=== PATIENT | female | born 1945 | race Two or more races ===

== ENCOUNTER 2021-12-20 07:47 | Outpatient (REF) | payer OTHER, SELFPAY ==
[2021-12-20 08:33] LABS: Appearance Urine HAZY; Color Urine YELLOW; Glucose Urine UA NEG (NEG); Leukocyte Esterase Urine NEG (NEG); Nitrite Urine NEG (NEG); Specific Gravity - Urine 1.025 (1.005-1.025); Urine Blood NEG (NEG); Urine Ketones NEG (NEG); Urine Protein NEG (NEG-TRACE)
[2021-12-20 08:45] LABS: Hematocrit 41.1 % (37.0-47.0); Hemoglobin 12.8 g/dl (12.0-16.0); Mean Corpuscular HGB Conc 31.1 g/dl (31.0-35.0); Mean Corpuscular Hemoglobin 31.8 pg (27.0-33.0); Mean Platelet Volume 11.2 fL (9.4-12.3); Platelet Count 248 X10*3/uL (160-400); Red Blood Count 4.03 X10*6/uL (4.20-5.50); Red Cell Distribution Width 13.2 % (11.0-16.0); White Blood Count 6.5 X10*3/uL (4.8-10.8)
[2021-12-20 08:53] LABS: Estimated Average Glucose 120 mg/dL; Hemoglobin A1c % 5.8 %
[2021-12-20 09:04] LABS: Alanine Aminotransferase 13 U/L (0-31); Albumin Level 4.3 g/dL (3.5-5.0); Alkaline Phosphatase 86 U/L (39-117); Anion Gap 11 (12-20); Aspartate Amino Transferase 16 U/L (5-31); Bilirubin Direct < 0.2 mg/dL (0.0-0.5); Bilirubin Total 0.4 mg/dL (0.0-1.0); Blood Urea Nitrogen 13 mg/dL (9-16); Carbon Dioxide 28 mmol/L (22-29); Chloride 106 mmol/L (96-108); Cholesterol 330 mg/dL; Estimated Glomerular Filt Rate 56; Glucose Random 98 mg/dL (60-115); HDL Cholesterol 61 mg/dL; LDL Cholesterol Calculated 248 mg/dl; Potassium 4.7 mmol/L (3.3-5.1); Sodium 140 mmol/L (135-145); Total Protein 7.2 g/dL (6.5-8.0); Triglycerides 109 mg/dL
[2021-12-20 09:26] LABS: Thyroid Stimulating Hormone 16.56 uIU/mL (0.32-4.0)
== END 2021-12-20 07:48 | disposition home or self-care (01) ==
LOC: HO.LAB 07:47
PROVIDERS: PCP Internal Medicine; Visit Provider Internal Medicine
DX: I10 Essential (primary) hypertension (principal)
CPT/HCPCS: 36415; 80048; 80061; 80076; 81003; 83036; 84443; 85027

== ENCOUNTER 2022-04-07 09:37 | Outpatient (REF) | payer OTHER, SELFPAY ==
[2022-04-07 11:02] LABS: Thyroid Stimulating Hormone 8.98 uIU/mL (0.32-4.0)
== END 2022-04-07 09:38 | disposition home or self-care (01) ==
LOC: HO.LAB 09:37
PROVIDERS: PCP Internal Medicine; Visit Provider Internal Medicine
DX: E03.9 Hypothyroidism, unspecified (principal)
CPT/HCPCS: 36415; 84443

== ENCOUNTER 2022-07-21 12:44 | Outpatient (REF) | payer OTHER, SELFPAY ==
[2022-07-21 13:06] LABS: Hematocrit 43.8 % (37.0-47.0); Hemoglobin 13.8 g/dl (12.0-16.0); Mean Corpuscular HGB Conc 31.5 g/dl (31.0-35.0); Mean Corpuscular Volume 95.2 fL (80.0-98.0); Mean Platelet Volume 10.7 fL (9.4-12.3); Platelet Count 325 X10*3/uL (160-400); Red Cell Distribution Width 12.4 % (11.0-16.0); White Blood Count 7.9 X10*3/uL (4.8-10.8)
[2022-07-21 13:40] LABS: Alanine Aminotransferase 18 U/L (0-31); Albumin Level 4.2 g/dL (3.5-5.0); Alkaline Phosphatase 83 U/L (39-117); Anion Gap 16 (12-20); Aspartate Amino Transferase 21 U/L (5-31); Bilirubin Direct < 0.2 mg/dL (0.0-0.5); Bilirubin Total 0.5 mg/dL (0.0-1.0); Blood Urea Nitrogen 15 mg/dL (9-16); Calcium 10.6 mg/dL (8.4-10.2); Carbon Dioxide 27 mmol/L (22-29); Chloride 103 mmol/L (96-108); Cholesterol 291 mg/dL; Estimated Glomerular Filt Rate 59; Glucose Random 110 mg/dL (60-115); HDL Cholesterol 52 mg/dL; LDL Cholesterol Calculated 211 mg/dl; Potassium 4.3 mmol/L (3.3-5.1); Sodium 142 mmol/L (135-145); Total Protein 7.1 g/dL (6.5-8.0); Triglycerides 141 mg/dL
[2022-07-21 13:55] LABS: Thyroid Stimulating Hormone 5.14 uIU/mL (0.32-4.0)
[2022-07-21 13:58] LABS: Appearance Urine Clear; Color Urine Yellow; Glucose Urine UA Negative (Negative); Leukocyte Esterase Urine Negative (Negative); Nitrite Urine Negative (Negative); Urine Blood Negative (Negative); Urine Ketones Negative (Negative); Urine Protein Trace mg/dL (Neg-Trace)
== END 2022-07-21 12:45 | disposition home or self-care (01) ==
LOC: HO.LAB 12:44
PROVIDERS: PCP Internal Medicine; Visit Provider Internal Medicine
DX: E03.9 Hypothyroidism, unspecified (principal); I10 Essential (primary) hypertension
CPT/HCPCS: 36415; 80048; 80061; 80076; 81003; 84443; 85027

== ENCOUNTER 2022-12-24 09:30 | Outpatient (AMB) | payer OTHER, SELFPAY ==
--- NOTE | 2022-12-24 09:48 | A.OFFPC_ITS ---
Vital Signs 12/24/22 09:49 Height 5 ft 6 in Weight 181 lb BMI 29.2 BP 128/80 Blood Pressure Location Lt brachial Position Sitting Pulse 113 H Pulse Source Pulse Oximeter Pulse Oximetry (%) 98 Oxygen Delivery Method Room Air Intake Visit Reasons: PE Intake Note: Patient is here today for a physical. Machine Chain Maker Required: Yes Machine Chain Maker Language: Phlebotomy Lab Assistant Name: Liu ([id number]) Information Interpreted: non-clinical & clinical Preschool Special Education Teacher: Not Required per policy Accompanied by: Self / Same As Patient Allergies No Known Allergies [No Known Allergies*] Allergy (Verified 12/24/22 11:52) Tobacco use date assessed: 12/24/22 Fall risk assessment: No Falls in past year Last assessed Fall Risk: 12/24/22 Dental Screening Dental Screen Date: 12/24/22 Did you have a dental visit in the last 12 months?: No Did you have a dental problem in the last 6 months where you did not have access to dental care?: No Was dental information given to patient?: No (no teeth) HPI PE HPI Details 77-year-old female presents to the office requesting an annual physical. Patient speaks Kazakh only and life sciences instructor was used. [facility] Medical History Benign essential HTN Hypothyroid Surgical History History of section Family History Father Parkinson disease Mother No problems noted. Social History Housing: House Alcohol intake: never Patient Tobacco Use Status: Never used Tobacco Tobacco use type: Cigarette e-Cigarette/Vaping Use: Never Used Second Hand Smoke Exposure: No service: No Current occupational status: retired Cognitive needs: Yes (cane ) Hearing needs: No Vision needs: Yes (glasses) Questionnaire PHQ-9 Over the last 2 weeks, how often have you been bothered by any of the following problems? Depression Screening Interpretation: Negative Source: Developed by Drs. Edgardo Terrell, Caryn Banerjee, Rohith Bui and colleagues, with an educational cherelle from [employer]. Thrive Questionnaire Date Thrive assessed: 12/17/21 AUNDREA-7 AMB Questionnaire AUNDREA-7 Date AUNDREA - 7 assessed: 07/21/22 Source: Developed by Drs. Edgardo Terrell, Caryn Banerjee, Rohith Bui and colleagues, with an educational cherelle from [employer]. Physical exam (Primary Care) Vital Signs: Last Vital Signs Pulse 113 H 12/24/22 09:49 BP 128/80 12/24/22 09:49 Pulse Ox 98 12/24/22 09:49 Oxygen Delivery Method Room Air 12/24/22 09:49 Care Plan Goal for BP management: Blood pressure is in range. Continue medications at same dosage. BMI result Body Mass Index 29.2 Tobacco/Smoking Status: Tobacco use Status Tobacco use date assessed 12/24/22 12/24/22 09:58 Patient Tobacco Use Status Never used Tobacco 12/24/22 09:58 Tobacco use type Cigarette 12/24/22 09:58 e-Cigarette/Vaping Use Never Used 12/24/22 09:58 Depression Screening Interpretation: Negative Thrive Assessment: Date of Thrive Assessment Date Thrive assessed 12/17/21 12/24/22 09:58 Advance Care Planning discussion: Exists, not on file Date of discussion: 12/24/22 Who was present: Patient. Using an life sciences instructor the healthcare proxy form was explained. Forms completed: Health Care Proxy Time spent: 1-15 minutes, not on file Actual minutes spent: 5 Const General: cooperative, healthy appearing and comfortable HENMT Head: Yes normal to inspection and Yes atraumatic Eyes General: appearance normal, both eyes and all related structures Neck Neck: Yes normal visual inspection and Yes full ROM Chest Chest palpation & inspection: normal inspection of the chest Resp Effort & Inspection: normal respiratory effort Auscultation: clear to auscultation bilaterally Cardio Jugular venous distension: no JVD Palpation: normal PMI Rate: regular rate Heart sounds: S1 normal heart sound present and S2 normal heart sound present GI Palpation (GI): Soft to palpation and No hepatosplenomegaly present Extrem General: Yes normal to inspection and Yes full ROM Assessment and Plan Assessment & Plan (1) Hypothyroid: Code(s): E03.9 - Hypothyroidism, unspecified Plan: Continue Synthroid at same dosage. Prescription called in. Patient was requesting a cane and a prescription for the same has been sent. (2) Benign essential HTN: Code(s): I10 - Essential (primary) hypertension Plan: Blood pressure is in range. Medications to be continued at the same dosage. (3) Annual physical exam: Code(s): Z00.00 - Encounter for general adult medical examination without abnormal findings Medications: Refilled of-bfr-xxrad-calcium carb-K1 400 mcg-500 mg calcium-20 mcg (Women's 50 Plus Multivitamin) Take 1 tablet by mouth daily 1 tab PO DAILY 90 tabs 1RF enalapril-hydrochlorothiazide 10-25 mg 1 tab PO DAILY 90 tabs 1RF levothyroxine 50 mcg PO DAILY 90 tabs 1RF simvastatin 10 mg PO BEDTIME 90 tabs 1RF Coding Level of Care Code Est Pt Prev Care >65y(66276) Diagnoses Hypothyroid E03.9 Benign essential HTN I10 Annual physical exam Z00.00 Additional Codes Vital Signs *Quality* - Advance Care Planning discussion: Exists, not on file ([id number]) Vital Signs *Quality* - Time spent: 1-15 minutes, not on file ([id number])
[2022-12-24 09:49] VITALS: BP 128/80; PULSE 113; O2SAT 98; BMI 29.2
== END 2022-12-24 10:43 | disposition home or self-care (01) ==
PROVIDERS: PCP Internal Medicine; Visit Provider Internal Medicine
DX: E03.9 Hypothyroidism, unspecified (principal); I10 Essential (primary) hypertension; Z00.00 Encounter for general adult medical examination without abnormal findings
CPT/HCPCS: 1123F; 1124F; 99397

== ENCOUNTER 2023-03-26 09:53 | Outpatient (AMB) | payer OTHER, SELFPAY ==
--- NOTE | 2023-03-26 10:06 | A.OFFPC_ITS ---
Vital Signs 03/26/23 10:07 Height 5 ft 6 in Weight 183 lb BMI 29.5 BP 124/68 Blood Pressure Location Lt brachial Position Sitting Pulse 116 H Pulse Source Pulse Oximeter Pulse Oximetry (%) 96 Oxygen Delivery Method Room Air Intake Visit Reasons: 3mth f/u Intake Note: Patient is here to follow up on HTN, Hypothyriod. It Support Engineer Required: Yes It Support Engineer Language: Grades 7 8 Tutor Name: Jaky ([id number]) Repairer Welding Systems And Equipment: Not Required per policy Accompanied by: Self / Same As Patient Allergies No Known Allergies [No Known Allergies*] Allergy (Verified 04/05/23 12:25) Medication List - Last Reconciled 04/05/23 by Humble Wilson MD [bath mat As directed] cane As directed 3 prong enalapril-hydrochlorothiazide 10-25 mg 1 tab PO DAILY levothyroxine 50 mcg PO DAILY dy-uci-rvzjr-calcium carb-K1 400 mcg-500 mg calcium-20 mcg (Women's 50 Plus Multivitamin) 1 tab PO DAILY [quad cane As directed] simvastatin 10 mg PO BEDTIME Tobacco use date assessed: 03/26/23 Fall risk assessment: No Falls in past year Last assessed Fall Risk: 03/26/23 Dental Screening Dental Screen Date: 03/26/23 Did you have a dental visit in the last 12 months?: No Did you have a dental problem in the last 6 months where you did not have access to dental care?: No Was dental information given to patient?: No (dentures) HPI 3mth f/u HPI Details 78-year-old female presents to the offic e to discuss her chronic medical conditions. Patient is compliant with medications and reporting no side effects. Able to function and do all activities of daily living. [facility] Medical History Benign essential HTN Hypothyroid Surgical History History of section Family History Father Parkinson disease Mother No problems noted. Social History Housing: House Alcohol intake: never Patient Tobacco Use Status: Never used Tobacco Tobacco use type: Cigarette e-Cigarette/Vaping Use: Never Used Second Hand Smoke Exposure: No service: No Current occupational status: retired Cognitive needs: Yes (cane ) Hearing needs: No Vision needs: Yes (glasses) Questionnaire Thrive Questionnaire Date Thrive assessed: 12/17/21 AUNDREA-7 AMB Questionnaire AUNDREA-7 Date AUNDREA - 7 assessed: 07/21/22 Source: Developed by Drs. Edgardo Terrell, Caryn Banerjee, Rohith Bui and colleagues, with an educational cherelle from [employer]. Physical exam (Primary Care) Vital Signs: Last Vital Signs Pulse 116 H 03/26/23 10:07 BP 124/68 03/26/23 10:07 Pulse Ox 96 03/26/23 10:07 Oxygen Delivery Method Room Air 03/26/23 10:07 BMI result Body Mass Index 29.5 Tobacco/Smoking Status: Tobacco use Status Tobacco use date assessed 03/26/23 03/26/23 10:14 Patient Tobacco Use Status Never used Tobacco 03/26/23 10:14 Tobacco use type Cigarette 03/26/23 10:14 e-Cigarette/Vaping Use Never Used 03/26/23 10:14 Thrive Assessment: Date of Thrive Assessment Date Thrive assessed 12/17/21 03/26/23 10:14 Const General: cooperative and healthy appearing Nutritional Appearance: well nourished Orientation/consciousness: patient oriented x3 Limitations: no limitations HENMT Head: Yes normal to inspection Eyes General: appearance normal, both eyes and all related structures Neck Neck: Yes normal visual inspection Chest Chest palpation & inspection: normal palpation of entire chest wall Resp Effort & Inspection: normal respiratory effort Neuro General: patient oriented x3 Assessment and Plan Assessment & Plan (1) Hypothyroid: Code(s): E03.9 - Hypothyroidism, unspecified Plan: TSH is in range. Continue current medications (2) Benign essential HTN: Code(s): I10 - Essential (primary) hypertension Plan: Blood pressure is in range. Continue current medications Coding Level of Care Code Est Pt Level 4 (77263) Diagnoses Hypothyroid E03.9 Benign essential HTN I10
[2023-03-26 10:07] VITALS: BP 124/68; PULSE 116; O2SAT 96; BMI 29.5
== END 2023-03-26 10:57 | disposition home or self-care (01) ==
PROVIDERS: Visit Provider Internal Medicine
DX: E03.9 Hypothyroidism, unspecified (principal); I10 Essential (primary) hypertension
CPT/HCPCS: 99214

== ENCOUNTER 2023-06-25 08:36 | Outpatient (REF) | payer OTHER, SELFPAY ==
[2023-06-25 09:38] LABS: Hematocrit 41.7 % (37.0-47.0); Hemoglobin 13.1 g/dl (12.0-16.0); Mean Corpuscular HGB Conc 31.4 g/dl (31.0-35.0); Mean Corpuscular Hemoglobin 30.1 pg (27.0-33.0); Mean Corpuscular Volume 95.9 fL (80.0-98.0); Mean Platelet Volume 11.1 fL (9.4-12.3); Platelet Count 346 X10*3/uL (160-400); Red Blood Count 4.35 X10*6/uL (4.20-5.50); Red Cell Distribution Width 12.2 % (11.0-16.0); White Blood Count 6.2 X10*3/uL (4.8-10.8)
[2023-06-25 11:01] LABS: Alanine Aminotransferase 20 U/L (0-31); Albumin Level 4.2 g/dL (3.5-5.0); Alkaline Phosphatase 53 U/L (39-117); Anion Gap 13 (12-20); Aspartate Amino Transferase 15 U/L (5-31); Bilirubin Direct 0.2 mg/dL (0.0-0.5); Bilirubin Total 0.4 mg/dL (0.0-1.0); Blood Urea Nitrogen 14 mg/dL (9-16); Calcium 10.8 mg/dL (8.4-10.2); Carbon Dioxide 29 mmol/L (22-29); Chloride 102 mmol/L (96-108); Cholesterol 196 mg/dL (<200); Estimated Glomerular Filt Rate 45; Glucose Random 117 mg/dL (60-115); HDL Cholesterol 51 mg/dL (>40); LDL Cholesterol Calculated 114 mg/dL (<100); Potassium 3.7 mmol/L (3.3-5.1); Sodium 140 mmol/L (135-145); Total Protein 7.6 g/dL (6.5-8.0); Triglycerides 156 mg/dL (<150)
[2023-06-25 11:03] LABS: Appearance Urine Clear; Color Urine Yellow; Glucose Urine UA Negative (Negative); Leukocyte Esterase Urine Negative (Negative); Nitrite Urine Negative (Negative); Specific Gravity - Urine 1.015 (1.005-1.025); Urine Blood Negative (Negative); Urine Ketones Negative (Negative); Urine Protein Negative (Neg-Trace)
[2023-06-25 11:15] LABS: Thyroid Stimulating Hormone 6.07 uIU/mL (0.32-4.0)
== END 2023-06-25 08:37 | disposition home or self-care (01) ==
LOC: HO.LAB 08:36
PROVIDERS: PCP Internal Medicine; Visit Provider Internal Medicine
DX: I10 Essential (primary) hypertension (principal); E03.9 Hypothyroidism, unspecified
CPT/HCPCS: 36415; 80048; 80061; 80076; 81003; 84443; 85027

== ENCOUNTER 2023-06-25 09:21 | Outpatient (AMB) | payer OTHER, SELFPAY ==
--- NOTE | 2023-06-25 10:10 | A.OFFPC_ITS ---
Vital Signs 06/25/23 10:13 Height 5 ft 6 in Weight 185 lb 8 oz BMI 29.9 BP 120/74 Blood Pressure Location Lt brachial Position Sitting Pulse 117 H Pulse Source Pulse Oximeter Pulse Oximetry (%) 98 Oxygen Delivery Method Room Air Intake Visit Reasons: 3 month f/u Intake Note: Patient is here to follow up on HTN, Hypothyroid and Lab results. Manager Cafe Required: Yes Manager Cafe Language: Electrical Tester Battery Name: Julieta ([id number]) Information Interpreted: non-clinical & clinical Hose Suspender Cutter: Not Required per policy Accompanied by: Self / Same As Patient Allergies No Known Allergies [No Known Allergies*] Allergy (Verified 06/26/23 15:12) Medication List - Last Reconciled 06/26/23 by Humble Wilson MD [bath mat As directed] cane As directed 3 prong enalapril-hydrochlorothiazide 10-25 mg 1 tab PO DAILY levothyroxine 75 mcg PO DAILY uv-aqq-eulre-calcium carb-K1 400 mcg-500 mg calcium-20 mcg (Women's 50 Plus Multivitamin) 1 tab PO DAILY [quad cane As directed] simvastatin 10 mg PO BEDTIME Tobacco use date assessed: 06/25/23 Fall risk assessment: No Falls in past year Last assessed Fall Risk: 06/25/23 Dental Screening Dental Screen Date: 06/25/23 Did you have a dental visit in the last 12 months?: No Did you have a dental problem in the last 6 months where you did not have access to dental care?: No Was dental information given to patient?: No HPI 3 month f/u HPI Details 78-year-old female presents to the [facility] e to discuss her medical conditions. Marshallese-speaking, a medical technologist microbiology from the iPad was used. Patient had blood work done today and is awaiting her results. She is compliant with her medications. No other complaints. [facility] Medical History Benign essential HTN Hypothyroid Surgical History History of section Family History Father Parkinson disease Mother No problems noted. Social History (Reviewed 06/25/23 @ 10:10 by MUNIRA Rehman Housing: House Alcohol intake: never Patient Tobacco Use Status: Never used Tobacco Tobacco use type: Cigarette e-Cigarette/Vaping Use: Never Used Second Hand Smoke Exposure: No service: No Current occupational status: retired Cognitive needs: Yes (cane ) Hearing needs: No Vision needs: Yes (glasses) Questionnaire PHQ-9 Over the last 2 weeks, how often have you been bothered by any of the following problems? 1. Little interest or pleasure in doing things: not at all 2. Feeling down, depressed, or hopeless: not at all 3. Trouble falling or staying asleep, or sleeping too much: not at all 4. Feeling tired or having little energy: not at all 5. Poor appetite or overeating: not at all 6. Feeling bad about yourself - or that you are a failure or have let yourself or your family down: not at all 7. Trouble concentrating on things, such as reading the newspaper or watching television: not at all 8. Moving or speaking so slowly that other people could have noticed. Or the opposite - being so fidgety or restless that you have been moving around a lot more than usual: not at all 9. Thoughts that you would be better off or of hurting yourself in some way: not at all Total score: 0 Depression Screening Interpretation: Negative Depression Screening Done: Yes Source: Developed by Drs. Edgardo Terrell, Caryn Banerjee, Rohith Bui and colleagues, with an educational cherelle from [employer]. Thrive Questionnaire Date Thrive assessed: 06/25/23 I am a: Patient What is your living situation today?: I have a steady place to live Within the past 12 months, did the food you bought not last and you didn't have the money to get more?: Never true Within the past 12 months, did you worry whether your food would run out before you got money to buy more?: Never true Do you have trouble paying for medicines?: No Do you have trouble getting transportation to medical appointments?: No Do you have trouble paying your heating and electricity bill?: No Do you have trouble taking care of your child, family member or friend?: No Do you have trouble with day-to-day activities such as bathing, preparing meals, shopping, managing finances, etc.?: No Are you currently unemployed and looking for a job?: No Are you interested in more education?: No Currently or been in a relationship where the following occur: no concerns reported THRIVE Score: 0 AUDIT C Alcohol Use Questionnaire (AUDIT-C) 1. How often do you have a drink containing alcohol?: Never Total Score: 0 AUNDREA-7 AMB Questionnaire AUNDREA-7 Date AUNDREA - 7 assessed: 06/25/23 Feeling nervous, anxious, or on edge: 0 = Not at all Not being able to stop or control worryin = Not at all Worrying too much about different things: 0 = Not at all Trouble relaxin = Not at all Being so restless that it is hard to sit still: 0 = Not at all Becoming easily annoyed or irritable: 0 = Not at all Feeling afraid as if something awful might happen: 0 = Not at all Total AUNDREA-7 score (0-4 normal; 5-9 mild; 10-14 moderate; 15-21 severe): 0 Source: Developed by Drs. Edgardo Terrell, Caryn Banerjee, Rohith Bui and colleagues, with an educational cherelle from [employer]. Physical exam (Primary Care) Vital Signs: Last Vital Signs Pulse 117 H 06/25/23 10:13 BP 120/74 06/25/23 10:13 Pulse Ox 98 06/25/23 10:13 Oxygen Delivery Method Room Air 06/25/23 10:13 Care Plan Goal for BP management: Blood pressure is in range. BMI result Body Mass Index 29.9 Tobacco/Smoking Status: Tobacco use Status Tobacco use date assessed 06/25/23 06/25/23 10:22 Patient Tobacco Use Status Never used Tobacco 06/25/23 10:22 Tobacco use type Cigarette 06/25/23 10:22 e-Cigarette/Vaping Use Never Used 06/25/23 10:22 PHQ-9: PHQ-9 Score PHQ-9: Total score 0 06/25/23 10:22 Depression Screening Interpretation: Negative Thrive Assessment: Date of Thrive Assessment Date Thrive assessed 06/25/23 06/25/23 10:22 Currently or been in a relationship where the following occur: no concerns reported Const General: cooperative and healthy appearing Nutritional Appearance: well nourished Orientation/consciousness: patient oriented x3 Limitations: no limitations HENMT Head: Yes normal to inspection Eyes General: appearance normal, both eyes and all related structures Neck Neck: Yes normal visual inspection Chest Chest palpation & inspection: normal palpation of entire chest wall Resp Effort & Inspection: normal respiratory effort Neuro General: patient oriented x3 Assessment and Plan Assessment & Plan (1) Hypothyroid: Code(s): E03.9 - Hypothyroidism, unspecified Plan: This note was dictated after the TSH results were available. TSH continues to be elevated and the Synthroid dosage was increased. Patient was advised to repeat TSH in 8 weeks. Medications: Discontinued levothyroxine Discontinued Reason: Doctor's Order 50 mcg PO DAILY 90 tabs 1RF Coding Level of Care Code Est Pt Level 4 (19891) Diagnoses Hypothyroid E03.9
[2023-06-25 10:13] VITALS: BP 120/74; PULSE 117; O2SAT 98; BMI 29.9
== END 2023-06-25 11:02 | disposition home or self-care (01) ==
PROVIDERS: PCP Internal Medicine; Visit Provider Internal Medicine
DX: E03.9 Hypothyroidism, unspecified (principal)
CPT/HCPCS: 99214

== ENCOUNTER 2023-09-17 09:04 | Outpatient (AMB) | payer OTHER, SELFPAY ==
--- NOTE | 2023-09-17 09:06 | A.OFFPC_ITS ---
Vital Signs 09/17/23 09:08 Height 5 ft 6 in Weight 185 lb 8 oz BMI 29.9 BP 112/68 Blood Pressure Location Lt brachial Position Sitting Pulse 109 H Pulse Source Pulse Oximeter Pulse Oximetry (%) 98 Oxygen Delivery Method Room Air Intake Visit Reasons: 3 month f/u Intake Note: Patient is here to follow up on HTN, Hypothyroid. Investment Officer Required: Yes Investment Officer Language: Tamazight Information Interpreted: non-clinical & clinical Operations Associate: Not Required per policy Accompanied by: Self / Same As Patient Allergies No Known Allergies [No Known Allergies*] Allergy (Verified 09/17/23 09:07) Tobacco use date assessed: 09/17/23 Fall risk assessment: No Falls in past year Last assessed Fall Risk: 09/17/23 Dental Screening Dental Screen Date: 06/25/23 HPI 3 month f/u HPI Details 78-year-old female presents to [facility] to discuss her chronic medical conditions. History obtained through an correctional program specialist. Patient is in her baseline state of health. Compliant with medications and reporting no side effects. Able to function and do all activities of daily living. [facility] Medical History Hypothyroid Benign essential HTN Surgical History History of section Family History Father Parkinson disease Mother No problems noted. Social History Housing: House Alcohol intake: never Patient Tobacco Use Status: Never used Tobacco Tobacco use type: Cigarette e-Cigarette/Vaping Use: Never Used Second Hand Smoke Exposure: No service: No Current occupational status: retired Cognitive needs: Yes (cane ) Hearing needs: No Vision needs: Yes (glasses) Questionnaire Thrive Questionnaire Date Thrive assessed: 06/25/23 AUNDREA-7 AMB Questionnaire AUNDREA-7 Date AUNDREA - 7 assessed: 06/25/23 Source: Developed by Drs. Edgardo Terrell, Caryn Banerjee, Rohith Bui and colleagues, with an educational cherelle from [employer]. Physical exam (Primary Care) Vital Signs: Last Vital Signs Pulse 109 H 09/17/23 09:08 BP 112/68 09/17/23 09:08 Pulse Ox 98 09/17/23 09:08 Oxygen Delivery Method Room Air 09/17/23 09:08 BMI result Body Mass Index 29.9 Tobacco/Smoking Status: Tobacco use Status Tobacco use date assessed 09/17/23 09/17/23 09:26 Patient Tobacco Use Status Never used Tobacco 09/17/23 09:26 Tobacco use type Cigarette 09/17/23 09:26 e-Cigarette/Vaping Use Never Used 09/17/23 09:26 Thrive Assessment: Date of Thrive Assessment Date Thrive assessed 06/25/23 09/17/23 09:26 Const General: cooperative and healthy appearing Nutritional Appearance: well nourished Orientation/consciousness: patient oriented x3 Limitations: no limitations HENMT Head: Yes normal to inspection Eyes General: appearance normal, both eyes and all related structures Neck Neck: Yes normal visual inspection Chest Chest palpation & inspection: normal palpation of entire chest wall Resp Effort & Inspection: normal respiratory effort Neuro General: patient oriented x3 Assessment and Plan Assessment & Plan (1) Benign essential HTN: Code(s): I10 - Essential (primary) hypertension Plan: Blood pressure is in range. Continue medications at same dosage. Medications: Refilled levothyroxine 75 mcg PO DAILY 90 caps 0RF simvastatin 10 mg PO BEDTIME 90 tabs 1RF Coding Level of Care Code Est Pt Level 3 (99890) Diagnoses Benign essential HTN I10
[2023-09-17 09:08] VITALS: BP 112/68; PULSE 109; O2SAT 98; BMI 29.9
== END 2023-09-17 09:55 | disposition home or self-care (01) ==
PROVIDERS: PCP Internal Medicine; Visit Provider Internal Medicine
DX: I10 Essential (primary) hypertension (principal)
CPT/HCPCS: 99213

== ENCOUNTER 2023-12-31 10:07 | Outpatient (AMB) | payer OTHER, SELFPAY ==
[2023-12-31 10:08] VITALS: BP 122/68; PULSE 108; O2SAT 98
--- NOTE | 2023-12-31 10:08 | A.OFFPC_ITS ---
Vital Signs 12/31/23 10:08 Height 5 ft 6 in Weight 186 lb 0.4 oz BMI 30.0 BP 122/68 Blood Pressure Location Lt brachial Position Sitting Pulse 108 H Pulse Source Pulse Oximeter Pulse Oximetry (%) 98 Oxygen Delivery Method Room Air Intake Visit Reasons: 3mof\u Safety Director Required: No Allergies No Known Allergies [No Known Allergies*] Allergy (Verified 12/31/23 10:09) Tobacco use date assessed: 09/17/23 Fall risk assessment: No Falls in past year Last assessed Fall Risk: 12/31/23 Dental Screening Dental Screen Date: 06/25/23 HPI 3mof\u HPI0 Details 78-year-old female presents to the [facility] to discuss her medical conditions. Compliant with medications and reports no side effects. History obtained through environmental project manager. Requesting a refill on her blood pressure medications [facility] Medical History Hypothyroid Benign essential HTN Surgical History History of section Family History Father Parkinson disease Mother No problems noted. Social History Housing: House Alcohol intake: never Patient Tobacco Use Status: Never used Tobacco Tobacco use type: Cigarette e-Cigarette/Vaping Use: Never Used Second Hand Smoke Exposure: No service: No Current occupational status: retired Cognitive needs: Yes (cane ) Hearing needs: No Vision needs: Yes (glasses) Questionnaire Thrive Questionnaire Date Thrive assessed: 06/25/23 AUDIT C Alcohol Use Questionnaire (AUDIT-C) 1. How often do you have a drink containing alcohol?: Never 3. How often do you have six or more drinks on one occasion?: Never Total Score: 0 AUNDREA-7 AMB Questionnaire AUNDREA-7 Date AUNDREA - 7 assessed: 06/25/23 Source: Developed by Drs. Edgardo Terrell, Caryn Banerjee, Rohith Bui and colleagues, with an educational cherelle from [employer]. Physical exam (Primary Care) Vital Signs: Last Vital Signs Pulse 108 H 12/31/23 10:08 BP 122/68 12/31/23 10:08 Pulse Ox 98 12/31/23 10:08 Oxygen Delivery Method Room Air 12/31/23 10:08 Care Plan Goal for BP management: Blood pressure is in range. BMI result Body Mass Index 30.0 Tobacco/Smoking Status: Tobacco use Status Tobacco use date assessed 09/17/23 12/31/23 10:14 Patient Tobacco Use Status Never used Tobacco 12/31/23 10:14 Tobacco use type Cigarette 12/31/23 10:14 e-Cigarette/Vaping Use Never Used 12/31/23 10:14 Thrive Assessment: Date of Thrive Assessment Date Thrive assessed 06/25/23 12/31/23 10:14 Const General: cooperative and healthy appearing Nutritional Appearance: well nourished Orientation/consciousness: patient oriented x3 Limitations: no limitations HENMT Head: Yes normal to inspection Eyes General: appearance normal, both eyes and all related structures Neck Neck: Yes normal visual inspection Chest Chest palpation & inspection: normal palpation of entire chest wall Resp Effort & Inspection: normal respiratory effort Neuro General: patient oriented x3 Assessment and Plan Assessment & Plan (1) Hypothyroid: Code(s): E03.9 - Hypothyroidism, unspecified Plan: In the last blood draw, TSH was slightly abnormal. The dosage of Synthroid was not adjusted. Will Plan In the last blood work, TSH was abnormal. The Synthroid dosage was not adjusted. If the abnormality worsens Synthroid dosage will be increased. Orders: Orders Thyroid Stimulating Hormone Today E03.9 - Hypothyroidism, unspecified Medications: Refilled enalapril maleate 10 mg PO DAILY 90 tabs 1RF hydrochlorothiazide 25 mg PO DAILY 90 tabs 1RF Coding Level of Care Code Est Pt Level 4 (33324) Complex EM visit Add On G2211 Diagnoses Hypothyroid E03.9
== END 2023-12-31 10:34 | disposition home or self-care (01) ==
PROVIDERS: PCP Internal Medicine; Visit Provider Internal Medicine
DX: E03.9 Hypothyroidism, unspecified (principal)
CPT/HCPCS: 99214; G2211

== ENCOUNTER 2024-03-28 10:47 | Outpatient (REF) | payer OTHER, SELFPAY ==
[2024-03-28 12:34] LABS: Thyroid Stimulating Hormone 3.61 uIU/mL (0.32-4.0)
== END 2024-03-28 10:48 | disposition home or self-care (01) ==
LOC: HO.LAB 10:47
PROVIDERS: PCP Internal Medicine; Visit Provider Internal Medicine
DX: E03.9 Hypothyroidism, unspecified (principal)
CPT/HCPCS: 36415; 84443

== ENCOUNTER 2024-04-06 10:20 | Outpatient (AMB) | payer OTHER, SELFPAY ==
--- NOTE | 2024-04-06 10:33 | A.OFFPC_ITS ---
Vital Signs 04/06/24 10:34 Height 5 ft 6 in Weight 185 lb BMI 29.9 BP 110/66 Blood Pressure Location Lt brachial Position Sitting Pulse 119 H Pulse Source Pulse Oximeter Pulse Oximetry (%) 98 Oxygen Delivery Method Room Air Intake Visit Reasons: 3 month Intake Note: Patient is here to follow up on HTN, Hypothyroid. Case Making Machine Operator Required: Yes Case Making Machine Operator Language: Enterprise Applications Manager Name: Cleopatra ([id number]) Information Interpreted: non-clinical & clinical Health Policy Nurse: Not Required per policy Accompanied by: Self / Same As Patient Allergies No Known Allergies [No Known Allergies*] Allergy (Verified 04/06/24 13:30) Medication List - Last Reconciled 04/06/24 by Humble Wilson MD [bath mat As directed] cane As directed 3 prong enalapril maleate 10 mg PO DAILY hydrochlorothiazide 25 mg PO DAILY levothyroxine 75 mcg PO DAILY qv-vva-xcfid-calcium carb-K1 400 mcg-500 mg calcium-20 mcg (Women's 50 Plus Multivitamin) 1 tab PO DAILY [quad cane As directed] simvastatin 10 mg PO BEDTIME Tobacco use date assessed: 04/06/24 Fall risk assessment: No Falls in past year Last assessed Fall Risk: 04/06/24 Dental Screening Dental Screen Date: 06/25/23 HPI 3 month HPI Details 79-year-old female presents to the [facility] to discuss her chronic medical conditions. Patient requested the use of an title curative specialist via the iPad. Patient wanted to know the results of the recent thyroid blood test. She is compliant with all medications and reporting no side effects. Able to function and do all activities of daily living. She received her flu vaccination today. [facility] Medical History Hypothyroid Benign essential HTN Surgical History History of section Family History Father Parkinson disease Mother No problems noted. Social History Housing: House Alcohol intake: never Patient Tobacco Use Status: Never used Tobacco Tobacco use type: Cigarette e-Cigarette/Vaping Use: Never Used Second Hand Smoke Exposure: No service: No Current occupational status: retired Cognitive needs: Yes (cane ) Hearing needs: No Vision needs: Yes (glasses) Questionnaire Thrive Questionnaire Date Thrive assessed: 06/25/23 AUNDREA-7 AMB Questionnaire AUNDREA-7 Date AUNDREA - 7 assessed: 06/25/23 Source: Developed by Drs. Edgardo Terrell, Caryn Banerjee, Rohith Bui and colleagues, with an educational cherelle from [employer]. Physical exam (Primary Care) Vital Signs: Last Vital Signs Pulse 119 H 04/06/24 10:34 BP 110/66 04/06/24 10:34 Pulse Ox 98 04/06/24 10:34 Oxygen Delivery Method Room Air 04/06/24 10:34 BMI result Body Mass Index 29.9 Tobacco/Smoking Status: Tobacco use Status Tobacco use date assessed 04/06/24 04/06/24 10:43 Patient Tobacco Use Status Never used Tobacco 04/06/24 10:43 Tobacco use type Cigarette 04/06/24 10:43 e-Cigarette/Vaping Use Never Used 04/06/24 10:43 Thrive Assessment: Date of Thrive Assessment Date Thrive assessed 06/25/23 04/06/24 10:43 Const General: cooperative and healthy appearing Nutritional Appearance: well nourished Orientation/consciousness: patient oriented x3 Limitations: no limitations HENMT Head: Yes normal to inspection Eyes General: appearance normal, both eyes and all related structures Neck Neck: Yes normal visual inspection Chest Chest palpation & inspection: normal palpation of entire chest wall Resp Effort & Inspection: normal respiratory effort Neuro General: patient oriented x3 Office Procedures Flu Questionnaire Does the patient have a severe egg allergy?: No Does the patient have severe life threatening allergies?: No Does the patient have a fever or illness today?: No Has the patient ever had Guillain-Mission Syndrome?: No Has the patient ever had any past reaction to a flu shot?: No Immunizations Fluarix Triv [id number] (PF) 45 mcg (15 mcg x 3)/0.5 mL IM syringe Performing Provider: Humble Wilson MD [facility] Administered by: Zuri Jones RN on 04/06/24 10:48 Dose Route Admin Location Dispensed Lot Number Expiration Date NDC Auricular Detoxification Specialist 0.5 mL IM Right Deltoid 0.5 mL [id number] 11/28/24 [id number] [employer] VIS Given Date VIS Provided VIS Publication Date 04/06/24 Single Vaccine 21 Eligibility Eligibility Date Funding Source Not VFC Eligible 04/06/24 Private Coding Level of Care Code Est Pt Level 4 (37845) Complex EM visit Add On G2211 Diagnoses Benign essential HTN I10 Hypothyroid E03.9 Assessment & Plan Assessment & Plan (1) Benign essential HTN: Code(s): I10 - Essential (primary) hypertension Category: Medical Plan: Blood work reviewed. Blood pressure is in range. Continue medications at same dosage. (2) Hypothyroid: Code(s): E03.9 - Hypothyroidism, unspecified Category: Medical Plan: TSH is in range. Patient is euthyroid. Continue Synthroid at the current dosage. Orders: Orders Influenza [id number] Immunization Today Z23 - Encounter for immunization
[2024-04-06 10:34] VITALS: BP 110/66; PULSE 119; O2SAT 98; BMI 29.9
== END 2024-04-06 11:18 | disposition home or self-care (01) ==
LOC: HO.HMCH 10:21
PROVIDERS: PCP Internal Medicine; Visit Provider Internal Medicine
DX: I10 Essential (primary) hypertension (principal); E03.9 Hypothyroidism, unspecified; Z23 Encounter for immunization

== ENCOUNTER → 2024-04-06 10:20 | Outpatient (BNVA) | payer OTHER, SELFPAY | PROVIDERS: PCP Internal Medicine; Visit Provider Internal Medicine | DX: Z23 Encounter for immunization (principal); I10 Essential (primary) hypertension; E03.9 Hypothyroidism, unspecified | CPT/HCPCS: 90471; 90656; 99212 ==

== ENCOUNTER 2024-07-28 10:43 | Outpatient (AMB) | payer OTHER, SELFPAY ==
--- NOTE | 2024-07-28 11:11 | MHC.PC.OV ---
Vital Signs 07/28/24 11:13 Height 5 ft 6 in Weight 183 lb 2 oz BMI 29.6 BP 110/70 Blood Pressure Location Lt brachial Position Sitting Pulse 118 H Pulse Source Pulse Oximeter Temp 97.1 F Temp Source Temporal Artery Scan Pulse Oximetry (%) 98 Oxygen Delivery Method Room Air Intake Visit Reasons: 3 month f/u Intake Note: Patient is here to follow up on HTN. American Sign Language Teacher Required: Yes American Sign Language Teacher Language: [employer] Name: Mabel ([id number]) Information Interpreted: non-clinical & clinical Special Duty Nurse: Not Required per policy Accompanied by: Self / Same As Patient Allergies No Known Allergies [No Known Allergies*] Allergy (Verified 07/29/24 20:39) Medication List - Last Reconciled 07/29/24 by Humble Wilson MD [bath mat As directed] cane As directed 3 prong enalapril maleate 10 mg PO DAILY hydrochlorothiazide 25 mg PO DAILY levothyroxine 75 mcg PO DAILY gg-urw-zdflj-calcium carb-K1 400 mcg-500 mg calcium-20 mcg (Women's 50 Plus Multivitamin) 1 tab PO DAILY [quad cane As directed] simvastatin 10 mg PO BEDTIME Tobacco use date assessed: 07/28/24 Fall risk assessment: No Falls in past year Last assessed Fall Risk: 07/28/24 Dental Screening Dental Screen Date: 07/28/24 Did you have a dental visit in the last 12 months?: Yes Did you have a dental problem in the last 6 months where you did not have access to dental care?: No Was dental information given to patient?: Patient has dentist HPI 3 month f/u HPI Details 79 yr old presents to the office to discuss her chronic medical conditions. Compliant with medications. Not reporting any side effects. Able to do all activities of daily living. [facility] Medical History Hypothyroid Benign essential HTN Surgical History History of section Family History Father Parkinson disease Mother No problems noted. Social History Housing: House Alcohol intake: never Patient Tobacco Use Status: Never used Tobacco Tobacco use type: Cigarette e-Cigarette/Vaping Use: Never Used Second Hand Smoke Exposure: No service: No Current occupational status: retired Cognitive needs: Yes (cane ) Hearing needs: No Vision needs: Yes (glasses) Questionnaire PHQ-9 Over the last 2 weeks, how often have you been bothered by any of the following problems? 1. Little interest or pleasure in doing things: not at all 2. Feeling down, depressed, or hopeless: not at all 3. Trouble falling or staying asleep, or sleeping too much: not at all 4. Feeling tired or having little energy: not at all 5. Poor appetite or overeating: not at all 6. Feeling bad about yourself - or that you are a failure or have let yourself or your family down: not at all 7. Trouble concentrating on things, such as reading the newspaper or watching television: not at all 8. Moving or speaking so slowly that other people could have noticed. Or the opposite - being so fidgety or restless that you have been moving around a lot more than usual: not at all 9. Thoughts that you would be better off or of hurting yourself in some way: not at all Total score: 0 Depression Screening Interpretation: Negative Depression Screening Done: Yes Source: Developed by Drs. Edgardo Terrell, Caryn Banerjee, Rohith Bui and colleagues, with an educational cherelle from [employer]. Thrive Questionnaire Date Thrive assessed: 07/28/24 I am a: Patient What is your living situation today?: I have a steady place to live Within the past 12 months, did the food you bought not last and you didn't have the money to get more?: Never true Within the past 12 months, did you worry whether your food would run out before you got money to buy more?: Never true Do you have trouble paying for medicines?: No Do you have trouble getting transportation to medical appointments?: No Do you have trouble paying your heating and electricity bill?: No Do you have trouble taking care of your child, family member or friend?: No Do you have trouble with day-to-day activities such as bathing, preparing meals, shopping, managing finances, etc.?: No Are you currently unemployed and looking for a job?: No Are you interested in more education?: No Please select the resources that you would like help with: None Currently or been in a relationship where the following occur: No concerns reported THRIVE Score: 0 AUDIT C Alcohol Use Questionnaire (AUDIT-C) 1. How often do you have a drink containing alcohol?: Never Total Score: 0 AUNDREA-7 AMB Questionnaire AUNDREA-7 Date AUNDREA - 7 assessed: 07/28/24 Feeling nervous, anxious, or on edge: 0 = Not at all Not being able to stop or control worryin = Not at all Worrying too much about different things: 0 = Not at all Trouble relaxin = Not at all Being so restless that it is hard to sit still: 0 = Not at all Becoming easily annoyed or irritable: 0 = Not at all Feeling afraid as if something awful might happen: 0 = Not at all Total AUNDREA-7 score (0-4 normal; 5-9 mild; 10-14 moderate; 15-21 severe): 0 Source: Developed by Drs. Edgardo Terrell, Caryn Banerjee, Rohith Bui and colleagues, with an educational cherelle from [employer]. Physical exam (Primary Care) Vital Signs: Last Vital Signs Temp 97.1 F 07/28/24 11:13 Pulse 118 H 07/28/24 11:13 BP 110/70 07/28/24 11:13 Pulse Ox 98 07/28/24 11:13 Oxygen Delivery Method Room Air 07/28/24 11:13 BMI result Body Mass Index 29.6 Tobacco/Smoking Status: Tobacco use Status Tobacco use date assessed 07/28/24 07/28/24 11:18 Patient Tobacco Use Status Never used Tobacco 07/28/24 11:11 Tobacco use type Cigarette 07/28/24 11:11 e-Cigarette/Vaping Use Never Used 07/28/24 11:11 PHQ-9: PHQ-9 Score PHQ-9: Total score 0 07/28/24 12:03 Depression Screening Interpretation: Negative Thrive Assessment: Date of Thrive Assessment Date Thrive assessed 07/28/24 07/28/24 11:18 Currently or been in a relationship where the following occur: No concerns reported Const General: cooperative and healthy appearing Nutritional Appearance: well nourished Orientation/consciousness: patient oriented x3 Limitations: no limitations HENMT Head: Yes normal to inspection Eyes General: appearance normal, both eyes and all related structures Neck Neck: Yes normal visual inspection Chest Chest palpation & inspection: normal palpation of entire chest wall Resp Effort & Inspection: normal respiratory effort Neuro General: patient oriented x3 Coding Level of Care Code Est Pt Level 4 (31009) Complex EM visit Add On G2211 Diagnoses Benign essential HTN I10 Hypothyroid E03.9 Assessment & Plan Assessment & Plan (1) Benign essential HTN: Code(s): I10 - Essential (primary) hypertension Category: Medical Plan: Compliant with meds. Counselling on diet and exercise done. (2) Hypothyroid: Code(s): E03.9 - Hypothyroidism, unspecified Category: Medical Plan: Compliant with meds
[2024-07-28 11:13] VITALS: BP 110/70; PULSE 118; TEMP 36.2; O2SAT 98; BMI 29.6
== END 2024-07-28 12:11 | disposition home or self-care (01) ==
PROVIDERS: PCP Internal Medicine; Visit Provider Internal Medicine
DX: I10 Essential (primary) hypertension (principal); E03.9 Hypothyroidism, unspecified

== ENCOUNTER → 2024-07-28 10:43 | Outpatient (BNVA) | payer OTHER, SELFPAY | PROVIDERS: PCP Internal Medicine; Visit Provider Internal Medicine | DX: I10 Essential (primary) hypertension (principal); E03.9 Hypothyroidism, unspecified | CPT/HCPCS: 99212 ==

== ENCOUNTER 2024-11-21 09:45 | Emergency (ER) | payer OTHER, SELFPAY ==
--- NOTE | ~2024-11-21 | XR_ITS ---
EXAMINATION: XR ELBOW, LEFT CLINICAL INFORMATION: redness/swelling , left elbow COMPARISON: None available. TECHNIQUE: AP, lateral, and oblique views of the left elbow. FINDINGS: There is no joint effusion. There is no dislocation. Somewhat amorphous moderate-sized calcific density is present in the soft tissues medial to the lateral humeral epicondyle and radial head. Small focal area of amorphous calcific density is present in the soft tissues adjacent to the medial humeral trochlea/epicondyle. Minimal amorphous calcific density is present near the proximal tip of the olecranon posterior to the elbow joint. XR/XR elbow LT min 3V IMPRESSION: Amorphous calcific densities in elbow joint could be related to calcific tendinitis. Differential considerations include pyrophosphate deposition or early enthesophyte formation. Electronically signed by: Seamus Morgan MD 11/21/2024 12:07 PM EDT
[2024-11-21 09:51] VITALS: BP 159/66; PULSE 123; RESP 18; TEMP 37.3; O2SAT 95; BMI 28.8
[2024-11-21 10:20] LABS: MANUAL DIFF FLAG NO
[2024-11-21 10:22] LABS: Basophils Percent Auto 0.5 % (0-2); Eosinophils Absolute Auto 0.1 X10*3/uL (0.0-0.4); Hematocrit 38.2 % (37.0-47.0); Hemoglobin 12.9 g/dl (12.0-16.0); Imm Gran Abs Auto 0.03 X10*3/uL (0.00-0.03); Imm Gran Pct Auto 0.4 % (0.0-0.4); Lymphocytes Absolute Auto 1.3 X10*3/uL (1.2-4.9); Lymphocytes Percent Auto 16.8 % (20-40); Mean Corpuscular HGB Conc 33.8 g/dl (31.0-35.0); Mean Corpuscular Hemoglobin 33.2 pg (27.0-33.0); Mean Corpuscular Volume 98.2 fL (80.0-98.0); Mean Platelet Volume 10.5 fL (9.4-12.3); Monocytes Percent Auto 12.9 % (2-11); Neutrophils Absolute Auto 5.4 x10*3/uL (2.0-8.3); Neutrophils Percent Auto 68.4 % (45-73); Platelet Count 289 X10*3/uL (160-400); Red Blood Count 3.89 X10*6/uL (4.20-5.50); Red Cell Distribution Width 12.6 % (11.0-16.0); White Blood Count 7.9 X10*3/uL (4.8-10.8)
--- NOTE | 2024-11-21 10:45 | ED_ITS ---
HPI - Extremity Problem General Chief complaint: Extremity Injury, Upper Stated complaint: L Elbow Pain Swelling Since Time Seen by Provider: 11/21/24 10:45 History of Present Illness ED Provider: Sanjeev MILLER Narrative: The patient is a 79-year-old woman who presents to the emergency room for evaluation of pain in the region of her left elbow that has been bothering her since last , 5 days ago. She says she leans on the elbow a fair amount. She has had no fever, sweats, chills. There is an area of redness on the lateral aspect of the elbow. There has been no streaking of the redness. The patient says she is right-handed. No definite trauma aside from possibly leaning on the elbow a lot. Related Data Previous Rx's ?Medication ?Instructions ?Recorded cane #1 ea 12/25/22 bath mat #1 ea 12/29/22 quad cane #1 ea 12/29/22 enalapril maleate 10 mg tablet 10 mg PO DAILY #90 tabs 08/26/24 pfcnygtx-bxs-tvqmh ac 400 1 tab PO DAILY #90 tabs 07/31 01/23 mcg-calcium carb 500 mg-vit K1 20 mcg tablet (Women's 50 Plus Multivitamin) simvastatin 10 mg tablet 10 mg PO BEDTIME #90 tabs hydrochlorothiazide 25 mg tablet 25 mg PO DAILY #90 ta bs 09/07/24 levothyroxine 75 mcg capsule 75 mcg PO DAILY #90 caps 10/08/24 acetaminophen 500 mg capsule 1,000 mg (2 x 500 mg) PO Q8H PRN 11/21/24 fever or pain #20 caps prednisone 5 mg tablet 5 mg PO DIRECTED #66 tabs 11/21/24 Allergies Allergy/AdvReac Type Severity Reaction Status Date / Time No Known Allergies (No Known Allergy Verified 11/21/24 09:53 Allergies*) Review of Systems 2 Review of Systems: Yes all other systems are reviewed and are negative [facility] Past Medical History Medical History Hypothyroid Benign essential HTN Surgical History History of section Family History Family History Father Parkinson disease Mother No problems noted. Social History Social History Housing: House Alcohol intake: never Patient Tobacco Use Status: Never used Tobacco Tobacco use type: Cigarette Smoked in Last 30 Days: No e-Cigarette/Vaping Use: Never Used Second Hand Smoke Exposure: No Use of substances other than those prescribed or required for medical reasons: No Advance Directives: No Advance Directives Information Provided: Yes service: No Current occupational status: retired Cognitive needs: Yes (cane ) Hearing needs: No Vision needs: Yes (glasses) Physical Exam 2 Vital Signs: Vital Signs: Last Vital Signs Temp 98.4 F 11/21/24 12:02 Pulse 117 H 11/21/24 12:02 Resp 24 H 11/21/24 12:02 BP 124/68 11/21/24 12:02 Pulse Ox 96 11/21/24 12:02 O2 Del Method Room Air 11/21/24 12:02 BMI result Body Mass Index 28.8 Const: Other: The patient is a 79-year-old woman who was awake and alert. She is cheerful and pleasant. She does not seem in acute distress. Orientation/consciousness: patient oriented x3 HEENT: Other: The face is symmetrical. Mucous membranes moist. Eyes: Other: Pupils are round equal, conjunctivae are clear, extraocular movements intact Neck: Neck: Yes normal visual inspection, Yes full ROM and Yes no JVD Resp: Effort & Inspection: normal respiratory effort Auscultation: clear to auscultation bilaterally Cardio: Other: No murmur heard Rate: regular rate Rhythm: regular rhythm Heart sounds: S1 normal heart sound present and S2 normal heart sound present Skin: Other: the patient has an area of pale erythema on the posterolateral aspect of the the left elbow. This is not sitting right over the olecranon. This is lateral to the olecranon. The erythema is very pale looking and not very warm. It is tender to the touch. Neuro: General: patient oriented x3, tone normal, moves all extremities, no focal motor deficits and CN's II-XI intact bilaterally Extrem: Other: The patient has an area of redness and swelling to the left elbow. This is not in the typical location of olecranon bursitis, it is more lateral. It is mildly tender. I can manipulate the elbow reasonably well. Medications Administered Discontinued Medications Generic Name Dose Route Start Last Admin Trade Name Tonia PRN Reason Stop Dose Admin Acetaminophen 975 mg 11/21/24 11:15 11/21/24 12:05 Acetaminophen 325 Mg Tablet PO 11/21/24 11:16 975 mg ONCE ONE Administration Cephalexin HCl 500 mg 11/21/24 11:11 11/21/24 12:05 Cephalexin 500 Mg Capsule PO 11/21/24 11:12 500 mg ONCE ONE Administration Doxycycline Monohydrate 100 mg 11/21/24 11:11 11/21/24 12:05 Doxycycline Monohydrate 100 Mg Capsule PO 11/21/24 11:12 100 mg ONCE ONE Administration Prednisone 60 mg 11/21/24 11:11 11/21/24 12:05 Prednisone 20 Mg Tablet PO 11/21/24 11:12 60 mg ONCE ONE Administration Medical Decision Making Medical Decision Making [facility] Narrative: The patient is a very pleasant 79-year-old female who presents with a few days of worsening pain and redness in the region of the left elbow. There is an area of redness and swelling and tenderness but this is not in the area where I would typically expect olecranon bursitis. Clinically I think the patient is physical exam is not consistent with an elbow joint septic arthritis. She has not had a fever. She was tachycardic in the emergency room. I reviewed previous vital signs and she seems to be chronically tachycardic when in a medical setting. We did an EKG to evaluate her tachycardia. It is sinus tachycardia. Labs show a normal white count and unremarkable differential. ESR is elevated at 65 CRP is elevated at 5.3. An x-ray of the left elbow was read as showing amorphous calcific densities in elbow joint could be related to calcific tendinitis. Differential considerations include pyrophosphate deposition or early enthesophyte formation. my overall impression is that this is probably a noninfectious inflammatory condition. She will be placed on a course of prednisone. She was given 60 mg of prednisone in the emergency department. She will be placed on a taper of prednisone over 12 days. Her renal function does not allow for nonsteroidal use. She should use Tylenol. She was given a sling. She should plan on following up with the regular doctor. 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 She should return to the emergency room if worse Lab Data 11/21/24 10:15 11/21/24 10:15 Labs: Lab Results 11/21/24 Range/Units 10:15 WBC 7.9 (4.8-10.8) X10*3/uL RBC 3.89 L (4.20-5.50) X10*6/uL Hgb 12.9 (12.0-16.0) g/dl Hct 38.2 (37.0-47.0) % MCV 98.2 H (80.0-98.0) fL MCH 33.2 H (27.0-33.0) pg MCHC 33.8 (31.0-35.0) g/dl RDW 12.6 (11.0-16.0) % Plt Count 289 (160-400) X10*3/uL MPV 10.5 (9.4-12.3) fL Immature Gran % (Auto) 0.4 (0.0-0.4) % Neut % (Auto) 68.4 (45-73) % Lymph % (Auto) 16.8 L (20-40) % [place] % (Auto) 12.9 H (2-11) % Eos % (Auto) 1.0 (0-4) % Baso % (Auto) 0.5 (0-2) % Lymph # (Auto) 1.3 (1.2-4.9) X10*3/uL [place] # (Auto) 1.0 (0.1-1.2) X10*3/uL Eos # (Auto) 0.1 (0.0-0.4) X10*3/uL Baso # (Auto) 0.0 (0.0-0.2) X10*3/uL Abs Immat Gran (auto) 0.03 (0.00-0.03) X10*3/uL Absolute Neuts (auto) 5.4 (2.0-8.3) x10*3/uL Absolute Nucleated RBC 0.000 (0.0-0.012) X10*3/uL Nucleated RBC % (auto) 0.0 (0.0-0.2) /100WBC ESR 65 H (0-20) MM/HR Sodium 134 L (135-145) mmol/L Potassium 3.6 (3.3-5.1) mmol/L Chloride 98 (96-108) mmol/L Carbon Dioxide 27 (22-29) mmol/L Anion Gap 13 (12-20) BUN 19 H (9-16) mg/dL Creatinine 1.19 (0.5-1.4) mg/dL Estim Creat Clear Calc 42.4 Estimated GFR 44 Random Glucose 150 H (60-115) mg/dL Calcium 10.7 H (8.4-10.2) mg/dL Total Bilirubin 0.7 (0.0-1.0) mg/dL AST 28 (5-31) U/L ALT 30 (0-31) U/L Alkaline Phosphatase 62 (39-117) U/L C-Reactive Protein 5.30 H (< or = 0.50) mg/dL Total Protein 7.3 (6.5-8.0) g/dL Albumin 4.1 (3.5-5.0) g/dL Discharge Plan Discharge Clinical Impression: Calcific tendinitis of elbow, Left elbow pain Patient Disposition: Home, Self-Care Instructions: Gout (ED), Tendinitis (ED) Additional Instructions: I think that you have some kind of inflammation in your left elbow that may have been caused by leaning on your elbow. You may have a condition known as ?calcific tendinitis. ? Alternatively this may be some kind of process like gout. You has been started on a course of prednisone, a steroid medication. My hope is that this medication will help reduce the inflammation. You may take acetaminophen (Tylenol) as needed for discomfort. Use the sling for comfort. Additionally please contact your regular doctor's office today for a prompt follow up appointment for re-evaluation of your elbow. Please also discuss your kidney function and your your heart rate. You have mildly reduced kidney function and you seemed to have a chronically elevated heart rate. Return to the emergency room if you feel significantly worse. Prescriptions: New prednisone 5 mg tablet 5 mg PO DIRECTED Qty: 66 0RF Rx Instructions: Take 11 tabs by mouth for 1 day, then take 10 tablets by mouth for 1 day, then take 9 tablets by mouth for 1 day, continue 1 tab less per day until done. acetaminophen 500 mg capsule 1,000 mg PO Q8H PRN (Reason: fever or pain) Qty: 20 0RF No Action (DME) cane Device See Rx Instructions .Route Qty: 1 0RF Rx Instructions: As directed 3 prong (DME) quad cane See Rx Instructions .Route .MEDSUPPLY Qty: 1 0RF Rx Instructions: As directed (DME) bath mat See Rx Instructions .Route .MEDSUPPLY Qty: 1 0RF Rx Instructions: As directed enalapril maleate 10 mg tablet 10 mg PO DAILY Qty: 90 1RF Women's 50 Plus Multivitamin 400 mcg-500 mg calcium-20 mcg tablet 1 tab PO DAILY Qty: 90 1RF Rx Instructions: Take 1 tablet by mouth daily simvastatin 10 mg tablet 10 mg PO BEDTIME Qty: 90 1RF hydrochlorothiazide 25 mg tablet 25 mg PO DAILY Qty: 90 1RF levothyroxine 75 mcg capsule 75 mcg PO DAILY Qty: 90 0RF Referrals: Humble Wilson MD [Primary Care Provider, Internal Medicine] Referral Note: left elbow pain and redness Interventions: ED Discharge Assessment Last Done: 11/21/24 12:02 Discharge Date/Time: 11/21/24 12:27 Print Language: Senegalese
[2024-11-21 10:53] LABS: Albumin Level 4.1 g/dL (3.5-5.0); Alkaline Phosphatase 62 U/L (39-117); Anion Gap 13 (12-20); Aspartate Amino Transferase 28 U/L (5-31); Bilirubin Total 0.7 mg/dL (0.0-1.0); Blood Urea Nitrogen 19 mg/dL (9-16); Calcium 10.7 mg/dL (8.4-10.2); Carbon Dioxide 27 mmol/L (22-29); Chloride 98 mmol/L (96-108); Creatinine Clr Calc Pharmacy 42.4; Estimated Glomerular Filt Rate 44; Glucose Random 150 mg/dL (60-115); Potassium 3.6 mmol/L (3.3-5.1); Sodium 134 mmol/L (135-145); Total Protein 7.3 g/dL (6.5-8.0)
[2024-11-21 11:11] LABS: Erythrocyte Sedimentation Rate 65 MM/HR (0-20)
[2024-11-21 11:16] LABS: Alanine Aminotransferase 30 U/L (0-31)
--- NOTE | 2024-11-21 11:19 | ECG_ITS ---
Test Reason : TACHYCARDIA Blood Pressure : */* mmHG Vent. Rate : 118 BPM Atrial Rate : 118 BPM P-R Int : 152 ms QRS Dur : 70 ms QT Int : 308 ms P-R-T Axes : 45 -26 9 degrees QTcB Int : 431 ms Sinus tachycardia Inferior infarct , age undetermined Abnormal ECG When compared with ECG of 21-Feb-2018 10:17, Premature ventricular complexes are no longer Present QRS axis Shifted left Inferior infarct is now Present Nonspecific T wave abnormality no longer evident in Lateral leads Referred By: Valentin Pace Electronically Signed By: DON GATICA
[2024-11-21 11:29] VITALS: BP 124/68; PULSE 117; RESP 24; TEMP 36.9; O2SAT 96
[2024-11-21 12:02] VITALS: BP 124/68; PULSE 117; RESP 24; TEMP 36.9; O2SAT 96
[2024-11-21] MEDS: cephALEXin 500 MG CAPSULE PO (12:05)
[2024-11-21] MEDS: Doxycycline Monohydrate 100 MG CAPSULE PO (12:05)
[2024-11-21] MEDS: predniSONE 20 MG TABLET 60 MG PO (12:05)
[2024-11-21] MEDS: Acetaminophen 325 MG TABLET 975 MG PO (12:05)
== END 2024-11-21 12:27 | disposition home or self-care (01) ==
PROVIDERS: Emergency Provider Emergency Medicine; PCP Internal Medicine
DX: M65.222 Calcific tendinitis, left upper arm (principal); R00.0 Tachycardia, unspecified; Z79.899 Other long term (current) drug therapy
CPT/HCPCS: 36415; 73080; 80053; 85025; 85652; 86140; 93005; 99283; 99284

== ENCOUNTER → 2024-11-21 11:01 | Outpatient (BNV) | payer OTHER, SELFPAY | PROVIDERS: Emergency Provider Emergency Medicine; PCP Internal Medicine; Visit Provider Radiology Diagnostic Radiology | DX: M25.522 Pain in left elbow (principal) | CPT/HCPCS: 73080 ==

== ENCOUNTER → 2024-11-21 11:19 | Outpatient (BNV) | payer OTHER, SELFPAY | PROVIDERS: Emergency Provider Emergency Medicine; PCP Internal Medicine; Visit Provider Internal Medicine | DX: R00.0 Tachycardia, unspecified (principal) | CPT/HCPCS: 93010 ==

== ENCOUNTER 2024-12-08 10:38 | Outpatient (AMB) | payer OTHER, SELFPAY ==
[2024-12-08 10:43] VITALS: BP 106/70; PULSE 102; TEMP 36.2; O2SAT 96; BMI 28.9
--- NOTE | 2024-12-08 10:43 | A.OFFPC_ITS ---
Vital Signs 12/08/24 10:43 Height 5 ft 6 in Weight 179 lb 4 oz BMI 28.9 BP 106/70 Blood Pressure Location Lt brachial Position Sitting Pulse 102 H Pulse Source Pulse Oximeter Temp 97.1 F Temp Source Temporal Artery Scan Pulse Oximetry (%) 96 Oxygen Delivery Method Room Air Intake Visit Reasons: 3 month f/u - see commments Silverlight Developer Required: Yes Silverlight Developer Language: Vietnamese Accompanied by: Self / Same As Patient Allergies No Known Allergies (No Known Allergies*) Allergy (Verified 12/08/24 10:46) Tobacco use date assessed: 07/28/24 Fall risk assessment: No Falls in past year Last assessed Fall Risk: 12/08/24 Dental Screening Dental Screen Date: 07/28/24 [facility] Medical History (Updated 11/22/24 @ 00:02 by Jhon Dewey) Hypothyroid Benign essential HTN Surgical History History of colonoscopy (~03/04/18) History of section Family History Father Parkinson disease Mother No problems noted. Social History Housing: House Alcohol intake: never Patient Tobacco Use Status: Never used Tobacco Tobacco use type: Cigarette e-Cigarette/Vaping Use: Never Used Second Hand Smoke Exposure: No service: No Current occupational status: retired Cognitive needs: Yes (cane ) Hearing needs: No Vision needs: Yes (glasses) Questionnaire PHQ-9 Over the last 2 weeks, how often have you been bothered by any of the following problems? 1. Little interest or pleasure in doing things: not at all 2. Feeling down, depressed, or hopeless: nearly every day 3. Trouble falling or staying asleep, or sleeping too much: nearly every day 4. Feeling tired or having little energy: nearly every day 5. Poor appetite or overeating: nearly every day 6. Feeling bad about yourself - or that you are a failure or have let yourself or your family down: more than half the days 7. Trouble concentrating on things, such as reading the newspaper or watching television: nearly every day 8. Moving or speaking so slowly that other people could have noticed. Or the opposite - being so fidgety or restless that you have been moving around a lot more than usual: nearly every day 9. Thoughts that you would be better off or of hurting yourself in some way: not at all Total score: 20 Source: Developed by Drs. Edgardo Terrell, Caryn Banerjee, Rohith Bui and colleagues, with an educational cherelle from [employer]. Thrive Questionnaire Date Thrive assessed: 07/28/24 I am a: Patient What is your living situation today?: I have a steady place to live Within the past 12 months, did the food you bought not last and you didn't have the money to get more?: I choose not to answer this question Within the past 12 months, did you worry whether your food would run out before you got money to buy more?: Often true Do you have trouble paying for medicines?: No Do you have trouble getting transportation to medical appointments?: No Do you have trouble paying your heating and electricity bill?: No Do you have trouble taking care of your child, family member or friend?: No Do you have trouble with day-to-day activities such as bathing, preparing meals, shopping, managing finances, etc.?: Yes Are you currently unemployed and looking for a job?: No Are you interested in more education?: No Please select the resources that you would like help with: None Currently or been in a relationship where the following occur: I choose not to answer THRIVE Score: 1 AUDIT C Alcohol Use Questionnaire (AUDIT-C) 1. How often do you have a drink containing alcohol?: Never Total Score: 0 AUNDREA-7 AMB Questionnaire AUNDREA-7 Date AUNDREA - 7 assessed: 07/28/24 Feeling nervous, anxious, or on edge: 3 = Nearly every day Not being able to stop or control worryin = Several days Worrying too much about different things: 3 = Nearly every day Trouble relaxin = Nearly every day Being so restless that it is hard to sit still: 3 = Nearly every day Becoming easily annoyed or irritable: 3 = Nearly every day Feeling afraid as if something awful might happen: 3 = Nearly every day Total AUNDREA-7 score (0-4 normal; 5-9 mild; 10-14 moderate; 15-21 severe): 19 Source: Developed by Drs. Edgardo Terrell, Caryn Banerjee, Rohith Bui and colleagues, with an educational cherelle from [employer]. Physical exam (Primary Care) Vital Signs: Last Vital Signs Temp 97.1 F 12/08/24 10:43 Pulse 102 H 12/08/24 10:43 BP 106/70 12/08/24 10:43 Pulse Ox 96 12/08/24 10:43 Oxygen Delivery Method Room Air 12/08/24 10:43 BMI result Body Mass Index 28.9 Tobacco/Smoking Status: Tobacco use Status Tobacco use date assessed 07/28/24 12/08/24 10:45 Patient Tobacco Use Status Never used Tobacco 12/08/24 10:45 Tobacco use type Cigarette 12/08/24 10:45 e-Cigarette/Vaping Use Never Used 12/08/24 10:45 PHQ-9: PHQ-9 Score PHQ-9: Total score 20 12/08/24 10:45 Thrive Assessment: Date of Thrive Assessment Date Thrive assessed 07/28/24 12/08/24 10:45 Currently or been in a relationship where the following occur: I choose not to answer Coding Level of Care Code Est Pt Level 4 (73893) Complex EM visit Add On G2211 Diagnoses Gout M10.9 Assessment & Plan Assessment & Plan (1) Gout: Code(s): M10.9 - Gout, unspecified Plan: presents to the office for an ER follow up visit. Patient was seen in the emergency room for left elbow pain and diagnosed with gout. Symptoms resolved with prednisone. Currently she is pain-free. She does not need any further medications. Plan History of Present Illness - The patient is a 79-year-old female presenting with follow-up for gout and medication management. - Gout: The patient experienced swelling and redness in the elbow, leading to two emergency room visits within two weeks. - The condition was severe enough to prevent her from sleeping or performing daily activities such as gripping objects. - She was treated with prednisone, starting with a high dose of 11 pills on the first day, tapering down over the following days. - The patient reports improvement in symptoms, with pain now being regular and not as severe as initially. - Hyperlipidemia, Hypothyroidism, and Hypertension: The patient is on medication for these conditions and is advised to continue her current regimen. Social History - The patient lives on the seventh floor and reports difficulty with activities such as mopping, cooking, and doing laundry due to her age. Review of Systems - Musculoskeletal: Reports swelling and redness in the elbow, with initial severe pain preventing sleep and daily activities. Physical Exam General: Cooperative and healthy appearing Nutritional Appearance: Well nourished Orientation/consciousness: Patient oriented x3 Limitations: No limitations Head: Normal to inspection General: Appearance normal, both eyes and all related structures Neck: Normal visual inspection Chest: Normal palpation of entire chest wall Respiratory: N ormal respiratory effort Neurology: Patient oriented x3, reports recent episodes of elbow pain due to gout, currently managed with prednisone and Tylenol. Pain has decreased, allowing for improved function. Results - Imaging: X-ray of the elbow was performed during emergency room visits. Plan 1. Gout - Continue monitoring symptoms and manage with lifestyle modifications as needed. - Prednisone treatment has been completed; no further prednisone is required. 2. Hyperlipidemia - Continue current medication regimen for hyperlipidemia. 3. Hypothyroidism - Continue current medication regimen for hypothyroidism. 4. Hypertension - Continue current medication regimen for hypertension. Discussion Notes During the visit, we discussed the management of gout, including the completion of prednisone treatment and the importance of monitoring symptoms. We also reviewed the patient's ongoing medication regimen for hyperlipidemia, hypothyroidism, and hypertension, emphasizing adherence to prescribed therapies. A follow-up appointment is scheduled in three months to reassess her condition and adjust treatment as necessary. Patient Instructions - Monitor symptoms of gout and report any significant changes. - Continue taking medications for hyperlipidemia, hypothyroidism, and hypertension as prescribed. - Follow up in three months for reassessment.
== END 2024-12-08 11:29 | disposition home or self-care (01) ==
LOC: HO.HMCH 10:39
PROVIDERS: PCP Internal Medicine; Visit Provider Internal Medicine
DX: M10.9 Gout, unspecified (principal)

== ENCOUNTER → 2024-12-08 10:38 | Outpatient (BNVA) | payer OTHER, SELFPAY | PROVIDERS: PCP Internal Medicine; Visit Provider Internal Medicine | DX: I10 Essential (primary) hypertension (principal); M10.9 Gout, unspecified; E78.5 Hyperlipidemia, unspecified; E03.9 Hypothyroidism, unspecified | CPT/HCPCS: 96127; 99212 ==

== ENCOUNTER 2025-03-16 10:31 | Outpatient (AMB) | payer OTHER, SELFPAY ==
--- NOTE | 2025-03-16 10:45 | A.OFFPC_ITS ---
Vital Signs 03/16/25 10:46 Height 5 ft 6 in Weight 183 lb BMI 29.5 BP 110/80 Blood Pressure Location Lt brachial Position Sitting Pulse 88 Pulse Source Pulse Oximeter Temp 97.1 F Temp Source Temporal Artery Scan Pulse Oximetry (%) 94 Oxygen Delivery Method Room Air Intake Visit Reasons: 3 month Intake Note: Patient is here to follow up on HTN, Hypothyroid. Industrial Design Engineer Required: Yes Industrial Design Engineer Language: Contact Centre Supervisor Name: Tanesha ([id number]) Information Interpreted: non-clinical & clinical Real Estate Leasing Agent: Not Required per policy Accompanied by: Self / Same As Patient Allergies No Known Allergies (No Known Allergies*) Allergy (Verified 03/16/25 10:46) Tobacco use date assessed: 03/16/25 Fall risk assessment: No Falls in past year Last assessed Fall Risk: 03/16/25 Dental Screening Dental Screen Date: 07/28/24 [facility] Medical History (Updated 11/22/24 @ 00:02 by Jhon Dewey) Hypothyroid Benign essential HTN Surgical History History of colonoscopy (~03/04/18) History of section Family History Father Parkinson disease Mother No problems noted. Social History Housing: House Alcohol intake: never Patient Tobacco Use Status: Never used Tobacco Tobacco use type: Cigarette e-Cigarette/Vaping Use: Never Used Second Hand Smoke Exposure: No service: No Current occupational status: retired Cognitive needs: Yes (cane ) Hearing needs: No Vision needs: Yes (glasses) Questionnaire Thrive Questionnaire Date Thrive assessed: 12/08/24 I am a: Patient What is your living situation today?: I have a steady place to live Within the past 12 months, did the food you bought not last and you didn't have the money to get more?: I choose not to answer this question Within the past 12 months, did you worry whether your food would run out before you got money to buy more?: Often true Do you have trouble paying for medicines?: No Do you have trouble getting transportation to medical appointments?: No Do you have trouble paying your heating and electricity bill?: No Do you have trouble taking care of your child, family member or friend?: No Do you have trouble with day-to-day activities such as bathing, preparing meals, shopping, managing finances, etc.?: Yes Are you currently unemployed and looking for a job?: No Are you interested in more education?: No Please select the resources that you would like help with: None Currently or been in a relationship where the following occur: I choose not to answer THRIVE Score: 1 AUNDREA-7 AMB Questionnaire AUNDREA-7 Date AUNDREA - 7 assessed: 07/28/24 Source: Developed by Drs. Edgardo Terrell, Caryn Banerjee, Rohith Bui and colleagues, with an educational cherelle from [employer]. Physical exam (Primary Care) Vital Signs: Last Vital Signs Temp 97.1 F 03/16/25 10:46 Pulse 88 03/16/25 10:46 BP 110/80 03/16/25 10:46 Pulse Ox 94 03/16/25 10:46 Oxygen Delivery Method Room Air 03/16/25 10:46 BMI result Body Mass Index 29.5 Tobacco/Smoking Status: Tobacco use Status Tobacco use date assessed 03/16/25 03/16/25 10:54 Patient Tobacco Use Status Never used Tobacco 03/16/25 10:54 Tobacco use type Cigarette 03/16/25 10:54 e-Cigarette/Vaping Use Never Used 03/16/25 10:54 Thrive Assessment: Date of Thrive Assessment Date Thrive assessed 12/08/24 03/16/25 10:54 Currently or been in a relationship where the following occur: I choose not to answer Office Procedures Flu Questionnaire Does the patient have a severe egg allergy?: No Does the patient have severe life threatening allergies?: No Does the patient have a fever or illness today?: No Has the patient ever had Guillain-[place] Syndrome?: No Has the patient ever had any past reaction to a flu shot?: No Immunizations Fluarix [id number] (PF) 45 mcg (15 mcg x 3)/0.5 mL IM syringe Performing Provider: Humble Wilson MD Performing Location: [facility] – [place] [facility] Administered by: Quin Thomas RN on 03/16/25 11:05 Dose Route Admin Location Dispensed Lot Number Expiration Date NDC Inspector Eyeglass 0.5 mL IM Right Deltoid 0.5 mL [id number] 11/28/25 [id number] [facility] Given Date VIS Provided VIS Publication Date 03/16/25 Single Vaccine 24 Eligibility Eligibility Date Funding Source Not [facility] Eligible 03/16/25 Private Coding Level of Care Code Est Pt Level 4 (70825) Complex EM visit Add On G2211 Diagnoses Benign essential HTN I10 Hypothyroid E03.9 Assessment & Plan Assessment & Plan (1) Benign essential HTN: Code(s): I10 - Essential (primary) hypertension Category: Medical Plan: Blood pressure in range (2) Hypothyroid: Code(s): E03.9 - Hypothyroidism, unspecified Category: Medical Plan: History of Present Illness - The patient is a 80-year-old female presenting with management of hypertension and hypothyroidism. - Hypertension: The patient is currently taking enalapril and other blood pressure medications, with blood pressure reported as stable during the visit. - Hypothyroidism: The patient is missing her thyroid medication and has only a few doses left for the week. A prescription has been sent to [facility], and blood work is recommended to monitor thyroid function. - Preventative care: The patient has received the influenza vaccine recently. Social History Review of Systems - Musculoskeletal: Reports improvement in elbow pain. Physical Exam General: Cooperative and healthy appearing Nutritional Appearance: Well nourished Orientation/consciousness: Patient oriented x3 Limitations: No limitations Head: Normal to inspection General: Appearance normal, both eyes and all related structures Neck: Normal visual inspection Chest: Normal palpation of entire chest wall Respiratory: Normal respiratory effort Neurology: Patient oriented x3 Results Plan - Continue current antihypertensive medications as blood pressure is stable. - Prescription for thyroid medication sent to [facility]; patient advised to complete blood work to monitor thyroid function. - Patient to follow up in six months unless issues arise sooner. Discussion Notes I discussed with the patient the importance of continuing her current antihypertensive regimen as her blood pressure is stable. We also addressed the need for her thyroid medication, and I sent a prescription to [facility]. I recommended that she complete blood work to monitor her thyroid function. We agreed on a follow-up in six months unless any issues arise sooner. Patient Instructions - Continue taking all prescribed medications, including enalapril and thyroid medication. - Complete blood work as advised to monitor thyroid function. - Schedule a follow-up appointment in six months or sooner if any health issues arise. Orders: Orders Thyroid Stimulating Hormone Today E03.9 - Hypothyroidism, unspecified, I10 - Essential (primary) hypertension Complete Blood Count no Diff Today E03.9 - Hypothyroidism, unspecified, I10 - Essential (primary) hypertension Liver Panel Today E03.9 - Hypothyroidism, unspecified, I10 - Essential (primary) hypertension UA and rflx microscopic Today E03.9 - Hypothyroidism, unspecified, I10 - Essential (primary) hypertension Influenza [id number] Immunization Today Z23 - Encounter for immunization Basic Metabolic Panel Today E03.9 - Hypothyroidism, unspecified, I10 - Essential (primary) hypertension Lipid Panel Today E03.9 - Hypothyroidism, unspecified, I10 - Essential (primary) hypertension Medications: Refilled levothyroxine 75 mcg PO DAILY 90 caps 0RF
[2025-03-16 10:46] VITALS: BP 110/80; PULSE 88; TEMP 36.2; O2SAT 94; BMI 29.5
== END 2025-03-16 11:20 | disposition home or self-care (01) ==
LOC: HO.HMCH 10:32
PROVIDERS: PCP Internal Medicine; Visit Provider Internal Medicine
DX: I10 Essential (primary) hypertension (principal); E03.9 Hypothyroidism, unspecified; Z23 Encounter for immunization

== ENCOUNTER → 2025-03-16 10:31 | Outpatient (BNVA) | payer OTHER, SELFPAY | PROVIDERS: PCP Internal Medicine; Visit Provider Internal Medicine | DX: I10 Essential (primary) hypertension (principal); E03.9 Hypothyroidism, unspecified; Z23 Encounter for immunization | CPT/HCPCS: 90471; 90656; 99212 ==

== ENCOUNTER 2025-03-23 10:00 | Outpatient (REF) | payer OTHER, SELFPAY ==
[2025-03-23 10:39] LABS: Hematocrit 43.1 % (37.0-47.0); Hemoglobin 13.7 g/dl (12.0-16.0); Mean Corpuscular HGB Conc 31.8 g/dl (31.0-35.0); Mean Corpuscular Hemoglobin 32.6 pg (27.0-33.0); Mean Corpuscular Volume 102.6 fL (80.0-98.0); NRBC Abs Auto 0.000 X10*3/uL (0.0-0.012); NRBC Pct Auto 0.0 /100WBC (0.0-0.2); Platelet Count 221 X10*3/uL (160-400); Red Blood Count 4.20 X10*6/uL (4.20-5.50); White Blood Count 6.0 X10*3/uL (4.8-10.8)
[2025-03-23 11:03] LABS: Appearance Urine Clear; Glucose Urine UA Negative (Negative); PH 6.5 (5.0-9.0); Specific Gravity - Urine 1.020 (1.005-1.025); UMIC TRIGGER UA YES
[2025-03-23 11:18] LABS: Alanine Aminotransferase 12 U/L (0-31); Albumin Level 4.4 g/dL (3.5-5.0); Alkaline Phosphatase 53 U/L (39-117); Anion Gap 13 (12-20); Aspartate Amino Transferase 21 U/L (5-31); Blood Urea Nitrogen 16 mg/dL (9-16); Calcium 10.4 mg/dL (8.4-10.2); Carbon Dioxide 29 mmol/L (22-29); Chloride 103 mmol/L (96-108); Cholesterol 192 mg/dL (<200); Estimated Glomerular Filt Rate 52; HDL Cholesterol 51 mg/dL (>40); Potassium 4.1 mmol/L (3.3-5.1); Sodium 141 mmol/L (135-145); Total Protein 7.2 g/dL (6.5-8.0); Triglycerides 136 mg/dL (<150)
[2025-03-23 11:26] LABS: Thyroid Stimulating Hormone 2.35 uIU/mL (0.32-4.0)
== END 2025-03-23 10:01 | disposition home or self-care (01) ==
LOC: HO.LAB 10:00
PROVIDERS: PCP Internal Medicine; Visit Provider Internal Medicine
DX: I10 Essential (primary) hypertension (principal); E03.9 Hypothyroidism, unspecified
CPT/HCPCS: 36415; 80048; 80061; 80076; 81001; 81003; 84443; 85027